=== PATIENT | female | born 1995 | race Caucasian/White ===

== ENCOUNTER → 2022-03-27 | Outpatient (CLI) | payer OTHER ==
[~2022-03-27] MED LIST: ESTA0.25 PO; FLUTISP NARES
== END ==
LOC: M LABSMTC 11:37
PROVIDERS: ATTEND Anesthesiology
DX: Z01.818 Encounter for other preprocedural examination (principal); Z11.52 Encounter for screening for COVID-19

== ENCOUNTER 2022-03-30 07:02 | Day surgery (SDC) | payer OTHER ==
[~2022-03-30] VITALS: Ht 152.4 cm; Wt 58.1 kg
[~2022-03-30 07:02] MED LIST changes: +NS 1,000 ML IV ONE
[2022-03-30] MEDS ORDERED: propofoL 500 MG/50 ML VIAL As Ordered ONE (07:05)
[2022-03-30 08:51] VITALS: BP 114/70
== END 2022-03-30 08:52 | disposition home or self-care (01) ==
LOC: M OPP 07:02
PROVIDERS: ATTEND Surgery
DX: Z12.11 Encounter for screening for malignant neoplasm of colon (principal); Z80.0 Family history of malignant neoplasm of digestive organs; K51.20 Ulcerative (chronic) proctitis without complications; Z79.3 Long term (current) use of hormonal contraceptives; Z79.51 Long term (current) use of inhaled steroids; Z79.899 Other long term (current) drug therapy

== ENCOUNTER 2022-04-21 04:22 | Emergency (ER) | payer OTHER ==
[~2022-04-21] VITALS: Ht 152.4 cm; Wt 59.6 kg
[~2022-04-21 04:22] MED LIST changes: -NS 1,000 ML IV ONE
[2022-04-21] MEDS ORDERED: IBUP200C29 PO (04:32)
[2022-04-21] MEDS ORDERED: ACET-683 PO (04:32)
[2022-04-21] MEDS ORDERED: ACETAMINOPHEN 500 MG TAB PO ONE (07:55)
[2022-04-21] MEDS ORDERED: IBUPROFEN 800 MG TAB PO ONE (07:55)
[2022-04-21] MEDS ORDERED: LIDOCAINE VISCOUS 2% SOLN 15ML UDC PO ONE (07:55)
[2022-04-21 08:55] LABS: MONO REFLEX EBV COMP NEGATIVE (NEGATIVE)
[2022-04-21] MEDS ORDERED: BENZ1LOZ9 PO (09:09)
[2022-04-21] MEDS ORDERED: IBUP80TA PO (09:15)
[2022-04-21] MEDS ORDERED: LIDO2SOL17 SS (09:15)
[2022-04-21 09:45] VITALS: BP 125/78
[2022-04-22 17:07] LABS: EBV AB TO NUCLEAR ANTIGEN >600.0 U/mL (0.0-17.9); EBV VIRAL CAPSID AG IgG >600.0 U/mL (0.0-17.9); EBV VIRAL CAPSID AG IgM <36.0 U/mL (0.0-35.9)
== END 2022-04-21 09:47 | disposition home or self-care (01) ==
LOC: M ED 04:22
DX: J06.9 Acute upper respiratory infection, unspecified (principal); H92.01 Otalgia, right ear; Z20.828 Contact with and (suspected) exposure to other viral communicable diseases

== ENCOUNTER → 2022-05-25 | Outpatient (CLI) | payer OTHER ==
[~2022-05-25] MED LIST changes: +ACET-683 PO; +BENZ1LOZ9 PO; +IBUP200C29 PO; +IBUP80TA PO; +LIDO2SOL17 SS
== END ==
LOC: M PLAIMG 09:10
PROVIDERS: ATTEND Registered Nurse
DX: R07.89 Other chest pain (principal); M25.532 Pain in left wrist

== ENCOUNTER → 2022-09-21 | Outpatient (CLI) | payer OTHER ==
[~2022-09-21] MED LIST changes: +FLUT50SP17 NARES; -FLUTISP NARES; +LIDO15SO SS; -LIDO2SOL17 SS
== END ==
LOC: M SOG 08:51
PROVIDERS: ATTEND Orthopaedic Surgery
DX: M25.562 Pain in left knee (principal)

== ENCOUNTER → 2022-09-23 | Outpatient (CLI) | payer OTHER | LOC: M RAD 08:56 | PROVIDERS: ATTEND Orthopaedic Surgery | DX: S83.512A Sprain of anterior cruciate ligament of left knee, initial encounter (principal); W18.30XA Fall on same level, unspecified, initial encounter; Y92.009 Unspecified place in unspecified non-institutional (private) residence as the place of occurrence of the external cause ==